=== PATIENT | female | born 1950 | race Hispanic/Latino ===

== ENCOUNTER → 2019-06-01 | Outpatient (CLI) | payer OTHER | END | disposition home or self-care (01) | LOC: RAH 07:49 | PROVIDERS: ATTEND Internal Medicine Gastroenterology | DX: K74.60 Unspecified cirrhosis of liver (principal) | CPT/HCPCS: 76700; 93975 ==

== ENCOUNTER 2020-07-12 08:15 | Day surgery (SDC) | payer OTHER ==
[~2020-07-12 08:15] MED LIST: 0.9%NACL 1000ML 1,000 ML IV ONE; ERGO500093 PO; ESOM40CA54 PO; LACT10SO46 PO; VITA1CAP85 PO
[2020-07-12 09:46] VITALS: BP 143/55
[2020-07-12] MEDS ORDERED: PROPOFOL 10 MG/ML 20ML VIAL IV ONE ×2 (10:53→11:03)
[2020-07-12 11:15] VITALS: BP 94/53
[2020-07-12 11:20] VITALS: BP 92/54
[2020-07-12 11:25] VITALS: BP 114/54
== END 2020-07-12 11:50 | disposition home or self-care (01) ==
LOC: ENDO 08:15 → DAH 08:15 → ENDO 11:50
PROVIDERS: ATTEND Internal Medicine Gastroenterology
DX: C7A.010 Malignant carcinoid tumor of the duodenum (principal); K31.7 Polyp of stomach and duodenum; K31.89 Other diseases of stomach and duodenum; K21.9 Gastro-esophageal reflux disease without esophagitis; M35.00 Sjogren syndrome, unspecified; K29.70 Gastritis, unspecified, without bleeding; Z86.010 Personal history of colon polyps; K74.60 Unspecified cirrhosis of liver; Z79.899 Other long term (current) drug therapy; Z20.828 Contact with and (suspected) exposure to other viral communicable diseases
CPT/HCPCS: 43236; A4215; A4221; A4222; A4223; A4606; A4620; A4663; C9803; J2704 ×2; J7030; U0003